=== PATIENT | female | born 1975 | race African-American/Black ===

== ENCOUNTER 2016-09-02 10:48 | Emergency (ER) | payer SELFPAY ==
[2016-09-02 10:52] VITALS: BP 134/83; PULSE 89; TEMP 98.6; BMI 29.2
[2016-09-02] MEDS ORDERED: IBUPROFEN 600 MG TABLET (FP) PO ONE ×2 (11:22→11:25)
[2016-09-02] MEDS ORDERED: DIPHTH,PERTUSS(ACELL),TET 0.5 ML DISP.SYRIN IM ONE (11:23)
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
--- NOTE | 2016-09-02 12:29 | EKG ---
Test Reason : Blood Pressure : / mmHG Vent. Rate : 077 BPM Atrial Rate : 077 BPM P-R Int : 164 ms QRS Dur : 090 ms QT Int : 386 ms P-R-T Axes : 061 057 050 degrees QTc Int : 436 ms NORMAL SINUS RHYTHM NONSPECIFIC T WAVE ABNORMALITY ABNORMAL ECG WHEN COMPARED WITH ECG OF 02-SEP-2016 10:58, NO SIGNIFICANT CHANGE WAS FOUND Confirmed by EDITH PADILLA MD ([id number]) on 09/02/2016 12:29:08 PM Referred By: Confirmed By:EDITH PADILLA MD
--- NOTE | 2016-09-04 14:57 | EKG ---
Test Reason : Blood Pressure : / mmHG Vent. Rate : 081 BPM Atrial Rate : 081 BPM P-R Int : 154 ms QRS Dur : 082 ms QT Int : 378 ms P-R-T Axes : 062 060 051 degrees QTc Int : 439 ms NORMAL SINUS RHYTHM POSSIBLE LEFT ATRIAL ENLARGEMENT BORDERLINE ECG NO PREVIOUS ECGS AVAILABLE Confirmed by ALIVIA ADKINS, OMA ([id number]) on 09/04/2016 2:56:26 PM Referred By: Confirmed By:OMA BUNCH MD
== END 2016-09-02 14:55 | disposition home or self-care (01) ==
LOC: JER 10:48
PROC: 3E0234Z Introduction of Serum, Toxoid and Vaccine into Muscle, Percutaneous Approach (ICD-10-PCS; principal; 2016-09-02)
DX: S02.82XA Fracture of other specified skull and facial bones, left side, initial encounter for closed fracture (principal); S20.219A Contusion of unspecified front wall of thorax, initial encounter; S00.12XA Contusion of left eyelid and periocular area, initial encounter; S05.12XA Contusion of eyeball and orbital tissues, left eye, initial encounter; W52.XXXA Crushed, pushed or stepped on by crowd or human stampede, initial encounter; Y93.89 Activity, other specified; Y92.89 Other specified places as the place of occurrence of the external cause
CPT/HCPCS: 70450-TC; 70486-TC; 71020-TC; 84703; 90715; 93005; 93010; 99282-25

== ENCOUNTER 2016-10-09 15:26 | Emergency (ER) | payer OTHER ==
[2016-10-09 15:29] VITALS: BP 134/75; PULSE 70; TEMP 98.8; BMI 28.3
[2016-10-09] MEDS ORDERED: IBUPROFEN 400 MG TABLET (FP) PO ONE ×2 (15:50→15:55)
--- NOTE | 2016-10-09 15:53 | PDOC ---
History of Present Illness - General Chief Complaint: Injury Stated Complaint: LT ANKLE PAIN Time Seen by Provider: 10/09/16 15:31 History Source: Patient - History of Present Illness Occurred: reports: yesterday Severity: Yes: mild Lower Extremity Pain Location: left: ankle Method of Injury: Yes: twisted Past History - Past Medical History Allergies/Adverse Reactions: Allergies Allergy/AdvReac Type Severity Reaction Status Date / Time No Known Allergies Allergy Verified 10/09/16 15:29 Home Medications: Ambulatory Orders NK [No Known Home Medication] 10/09/16 Asthma: No Cancer: No Cardiac Disorders: No Diabetes: No HTN: No Seizures: No Thyroid Disease: No - Psycho/Social/Smoking Cessation Hx Anxiety: No Suicidal Ideation: No Smoking History: Never smoked Have you smoked in the past 12 months: No Hx Alcohol Use: No Drug/Substance Use Hx: No Substance Use Type: None Hx Substance Use Treatment: No Review of Systems - Review of Systems Musculoskeletal: Yes: Joint Pain, Joint Swelling *Physical Exam - Vital Signs Last Vital Signs Temp Pulse Resp BP Pulse Ox 98.8 F 70 20 134/75 100 10/09/16 15:26 10/09/16 15:26 10/09/16 15:26 10/09/16 15:26 10/09/16 15:26 - Physical Exam General Appearance: Yes: Appropriately Dressed. No: Apparent Distress HEENT: positive: Normal Voice Neck: positive: Supple Respiratory/Chest: negative: Respiratory Distress Extremity: positive: Swelling (minimal swelling to lateral malleolus of L ankle) Integumentary: positive: Dry, Warm Neurologic: positive: Fully Oriented, Alert, Normal Mood/Affect ED Treatment Course - RADIOLOGY Radiology Studies Ordered: Category Date Time Status ANKLE & FOOT-LEFT* [RAD] Stat Radiology 10/09/16 15:50 Ordered Medical Decision Making - Medical Decision Making 10/09/16 15:50 41 yo F, no sig hx, here w/ L ankle pain and swelling s/p twisting injury yesterday. Able to bear weight and has not taken anything for pain See exam M/l ankle sprain -xr -pain control 10/09/16 16:06 XR neg for fx. Delano placed and pt discharged to take otc meds until sxs resolves *DC/Admit/Observation/Transfer Diagnosis at time of Disposition: Ankle sprain Qualifiers: Encounter type: initial encounter Involved ligament of ankle: unspecified ligament Laterality: left Qualified Code(s): S93.402A - Sprain of unspecified ligament of left ankle, initial encounter - Referrals Referrals: Brittney Chaidez MD [Primary Care Provider] - - Patient Instructions Printed Discharge Instructions: DI for Ankle Sprain Additional Instructions: You have an ankle sprain which can take a week or 2 to heal. Take motrin as needed for pain. Apply delano wrap, elevate and ice area as needed
== END 2016-10-09 16:19 | disposition home or self-care (01) ==
LOC: JERFT 15:26
DX: S93.402A Sprain of unspecified ligament of left ankle, initial encounter (principal); X50.1XXA Overexertion from prolonged static or awkward postures, initial encounter; Y93.89 Activity, other specified; Y92.89 Other specified places as the place of occurrence of the external cause
CPT/HCPCS: 73610-TC-LT; 73630-TC-LT; 99281-25

== ENCOUNTER 2017-01-09 09:02 | Emergency (ER) | payer OTHER ==
[2017-01-09 09:12] VITALS: BMI 28.3
[2017-01-09] MEDS ORDERED: ACETAMINOPHEN 500 MG TABLET (FP) PO ONE (09:38)
[2017-01-09] MEDS ORDERED: ACETAMINOPHEN 500 MG TABLET (FP) ONE (09:45)
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
[2017-01-09 11:32] VITALS: BP 120/68; PULSE 59; TEMP 98.1
== END 2017-01-09 11:43 | disposition home or self-care (01) ==
LOC: JER 09:02
DX: G44.319 Acute post-traumatic headache, not intractable (principal); W22.8XXD Striking against or struck by other objects, subsequent encounter; V88.8XXD Person injured in other specified noncollision transport accidents involving motor vehicle, nontraffic, subsequent encounter
CPT/HCPCS: 99282-25

== ENCOUNTER 2017-03-23 14:54 | Emergency (ER) | payer OTHER ==
[2017-03-23 15:00] VITALS: BP 114/73; PULSE 89; TEMP 99.6; BMI 28.3
--- NOTE | 2017-03-23 16:23 | PDOC ---
History of Present Illness - General Chief Complaint: Respiratory Stated Complaint: CHEST PAIN Time Seen by Provider: 03/23/17 16:14 History Source: Patient Exam Limitations: No Limitations - History of Present Illness Initial Comments: 03/23/17 16:18 Patient is a [41-year-old female with no other medical history children recently diagnosed with influenza presents with fever, cough, pain to chest with coughing, headache, body aches.] Past Medical History: [Denies]. Allergies: No known allergies Medications: [None] Family History: Non-contributory Social History: Denies smoking, alcohol use, or IVDU Vital signs on arrival are [notable for pulse of 96.] Review of Systems GENERAL/CONSTITUTIONAL: Fever, body aches, No weakness. No weight change.] HEAD, EYES, EARS, NOSE AND THROAT: [No change in vision. No ear pain or discharge. No sore throat. ] CARDIOVASCULAR: [No chest pain or shortness of breath.] RESPIRATORY: [Moist cough, no wheezing no hemoptysis] GASTROINTESTINAL: [No nausea, vomiting, diarrhea or constipation. No rectal bleeding.] GENITOURINARY: [No dysuria, frequency, or change in urination.] MUSCULOSKELETAL: [No joint or muscle swelling or pain. No neck or back pain.] SKIN : [No rash or easy bruising.] NEUROLOGIC: [ Frontal headache, vertigo, loss of consciousness, or loss of sensation.] PSYCHIATRIC: [No depression or anxiety.] ENDOCRINE: [No increased thirst. No abnormal weight change.] HEMATOLOGIC/LYMPHATIC: [No anemia, easy bleeding, or history of blood clots.] ALLERGIC/IMMUNOLOGIC: [No hives or skin allergy. No latex allergy.] Physical Exam: GENERAL: [The patient is awake, alert, and fully oriented, in no acute distress. ] HEAD: [Normal with no signs of trauma.] EYES: [Pupils equal, round and reactive to light, extraocular movements intact, sclera anicteric, conjunctiva clear.] ENT: [Ears normal, nares patent, oropharynx clear without exudates. Moist mucous membranes. No uvula deviation] NECK: [Normal range of motion, supple without lymphadenopathy, JVD, or masses.] LUNGS: [Rhonchi bilaterally, no wheezing, no crackles.] HEART: [Regular rate and rhythm, normal S1 and S2 without murmur, rub or gallop. ] ABDOMEN: [Soft, nontender, normoactive bowel sounds. No guarding, no rebound. No masses. No bruising or abrasions] MUSCULOSKELETAL: [Normal range of motion, no edema. No clubbing or cyanosis. No cords, erythema, or tenderness. No CVA Tenderness with fist.] NEUROLOGICAL: [Cranial nerves II through XII grossly intact. Normal speech, normal gait.] SKIN: [Warm, Dry, normal turgor, no rashes or lesions noted.] Past History - Past Medical History Allergies/Adverse Reactions: Allergies Allergy/AdvReac Type Severity Reaction Status Date / Time No Known Allergies Allergy Verified 01/09/17 09:03 Home Medications: Ambulatory Orders Azithromycin [Zithromax 250mg Tablets -] 250 mg PO UTDICT #6 tab 03/23/17 Oseltamivir Phosphate [Tamiflu -] 75 mg PO BID #10 capsule 03/23/17 Asthma: No Cancer: No Cardiac Disorders: No COPD: No Diabetes: No HTN: No Seizures: No Thyroid Disease: No - Immunization History Immunization Up to Date: Yes - Suicide/Smoking/Psychosocial Hx Smoking History: Never smoked Have you smoked in the past 12 months: No Hx Alcohol Use: Yes Drug/Substance Use Hx: No Substance Use Type: None Hx Substance Use Treatment: No *Physical Exam - Vital Signs Last Vital Signs Temp Pulse Resp BP Pulse Ox 99.6 F 89 18 114/73 100 03/23/17 14:57 03/23/17 14:57 03/23/17 14:57 03/23/17 14:57 03/23/17 14:57 Medical Decision Making - Medical Decision Making 03/23/17 16:20 A/P: Patient here with influenza-type illness was exposed to influenza will DC patient on azithromycin and Tamiflu. Instructions for self-care given to patient. *DC/Admit/Observation/Transfer Diagnosis at time of Disposition: Influenza URI (upper respiratory infection) Qualifiers: URI type: unspecified URI Qualified Code(s): J06.9 - Acute upper respiratory infection, unspecified - Discharge Dispostion Disposition: HOME Condition at time of disposition: Stable Admit: No - Prescriptions Prescriptions: Azithromycin [Zithromax 250mg Tablets -] 250 mg PO UTDICT #6 tab Oseltamivir Phosphate [Tamiflu -] 75 mg PO BID #10 capsule - Referrals Referrals: Brittney Chaidez MD [Primary Care Provider] - - Patient Instructions Additional Instructions: You have been diagnosed with influenza , exposure to influenza. Please take the medication as directed. You are contagious. Please attempt to avoid contact of multiple individuals as this will cause the infection to spread. Return to emergency room if shortness of breath, wheezing, fever greater than 101, chest pain, or fainting occurs. - Post Discharge Activity Forms/Work/School Notes: Back to Work
== END 2017-03-23 16:37 | disposition home or self-care (01) ==
LOC: JERFT 14:54
DX: J11.1 Influenza due to unidentified influenza virus with other respiratory manifestations (principal)
CPT/HCPCS: 99281-25

== ENCOUNTER 2017-08-11 19:12 | Emergency (ER) | payer OTHER ==
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
[2017-08-11 19:24] VITALS: BP 120/72; PULSE 83; TEMP 98.2; BMI 64.5
--- NOTE | 2017-08-11 20:24 | PDOC ---
History of Present Illness - General Chief Complaint: Pain Stated Complaint: PAIN Time Seen by Provider: 08/11/17 19:17 - History of Present Illness Initial Comments: 41-year-old female without comorbidities presents for evaluation of left ankle pain. She states she fractured her left ankle back in April was treated with a cast and started physical therapy about a week ago and since her initiation of the physical therapy program she's been having increased pain and swelling. She has no other associated symptoms. 08/11/17 20:21 Past History - Past Medical History Allergies/Adverse Reactions: Allergies Allergy/AdvReac Type Severity Reaction Status Date / Time No Known Allergies Allergy Verified 01/09/17 09:03 Home Medications: Ambulatory Orders NK [No Known Home Medication] 08/11/17 Asthma: No Cancer: No Cardiac Disorders: No COPD: No Diabetes: No HTN: No Seizures: No Thyroid Disease: No - Immunization History Immunization Up to Date: Yes - Suicide/Smoking/Psychosocial Hx Smoking History: Never smoked Have you smoked in the past 12 months: No Information on smoking cessation initiated: No Hx Alcohol Use: Yes Drug/Substance Use Hx: No Substance Use Type: None Hx Substance Use Treatment: No Review of Systems - Review of Systems Musculoskeletal: Yes: See HPI, Joint Pain All Other Systems: Reviewed and Negative *Physical Exam - Vital Signs Last Vital Signs Temp Pulse Resp BP Pulse Ox 98.2 F 83 20 120/72 100 08/11/17 19:19 08/11/17 19:19 08/11/17 19:19 08/11/17 19:19 08/11/17 19:19 - Physical Exam Comments: Left ankle skin color and temperature are normal there is full range of motion minimal tenderness over the lateral malleolus without any gross sensorimotor deficits. 08/11/17 20:22 ED Treatment Course - ADDITIONAL ORDERS Additional order review: Laboratory Results 08/11/17 19:30 Urine HCG, Qual Negative Medical Decision Making - Medical Decision Making Patient was treated nonoperatively with the Cam Walker boot and cast prior start physical therapy and her symptoms flared up. I advised her to continue taking Motrin and Tylenol. She'll follow-up with her orthopedist for further evaluation and treatment options. The fracture on x-ray. appears healed 08/11/17 20:22 08/11/17 20:23 *DC/Admit/Observation/Transfer Diagnosis at time of Disposition: Ankle pain, chronic - Discharge Dispostion Disposition: HOME Condition at time of disposition: Stable Decision to Admit order: No - Referrals Referrals: Jose Duncan MD [Staff Physician] - - Patient Instructions Additional Instructions: Continue to weight-bear as tolerated with the use of the Cam Walker boot and crutches. Return to the emergency room should her symptoms worsen or go unresolved. It's best that he follow-up with your orthopedist for further evaluation and treatment options and he progresses her physical therapy accordingly. - Post Discharge Activity
== END 2017-08-11 20:26 | disposition home or self-care (01) ==
LOC: JERFT 19:12
DX: M25.572 Pain in left ankle and joints of left foot (principal); G89.29 Other chronic pain
CPT/HCPCS: 73610-TC-LT-FY; 73630-TC-LT; 84703; 99281-25

== ENCOUNTER 2017-09-04 15:51 | Emergency (ER) | payer OTHER ==
--- NOTE | 2017-09-04 16:28 | PDOC ---
Rapid Medical Evaluation Time Seen by Provider: 09/04/17 16:26 Medical Evaluation: Allergies Allergy/AdvReac Type Severity Reaction Status Date / Time No Known Allergies Allergy Verified 01/09/17 09:03 I have performed a brief in-person evaluation of this patient. The patient presents with a chief complaint of: overall body itching since yesterday. facial swelling today. has been taking benadryl without relief Pertinent physical exam findings: left supraorbital swelling and left facial swelling. No visible rash I have ordered the following: hcg The patient will proceed to the ED for further evaluation. Discharge Disposition - Diagnosis Left facial swelling - Referrals - Patient Instructions - Post Discharge Activity
[2017-09-04 16:32] VITALS: BP 129/74; PULSE 70; TEMP 98.7; BMI 28.3
[2017-09-04] MEDS ORDERED: TRIAMCINOLONE ACET 40MG/1ML VIAL IM ONE (17:03)
[2017-09-04] MEDS ORDERED: IBUPROFEN 400 MG TABLET (FP) PO ONE ×2 (17:03→17:06)
[2017-09-04] MEDS ORDERED: TRIAMCINOLONE ACET 40MG/1ML VIAL ONE (17:06)
--- NOTE | 2017-09-04 17:09 | PDOC ---
History of Present Illness - General Chief Complaint: Eye Problem Stated Complaint: EYE PROBLEM Time Seen by Provider: 09/04/17 16:26 History Source: Patient Exam Limitations: No Limitations - History of Present Illness Initial Comments: 09/04/17 17:04 42 yr female no pmhx with left eye swollen lid itchy , rash to the left inner forearm. no fever no SOB no diff breathing. no travel. Past History - Past Medical History Allergies/Adverse Reactions: Allergies Allergy/AdvReac Type Severity Reaction Status Date / Time No Known Allergies Allergy Verified 09/04/17 16:29 Home Medications: Ambulatory Orders hydrOXYzine HCL [Atarax -] 10 mg PO QID #28 tablet 09/04/17 Asthma: No Cancer: No Cardiac Disorders: No COPD: No Diabetes: No HTN: No Seizures: No Thyroid Disease: No Other medical history: Pt denies - Immunization History Immunization Up to Date: Yes - Suicide/Smoking/Psychosocial Hx Smoking History: Never smoked Have you smoked in the past 12 months: No Information on smoking cessation initiated: No Hx Alcohol Use: No Drug/Substance Use Hx: No Substance Use Type: None Hx Substance Use Treatment: No *Physical Exam - Vital Signs Last Vital Signs Temp Pulse Resp BP Pulse Ox 98.7 F 70 18 129/74 100 09/04/17 16:29 09/04/17 16:29 09/04/17 16:29 09/04/17 16:29 09/04/17 16:29 *DC/Admit/Observation/Transfer Diagnosis at time of Disposition: Left facial swelling Allergic reaction Qualifiers: Encounter type: initial encounter Qualified Code(s): T78.40XA - Allergy, unspecified, initial encounter - Discharge Dispostion Disposition: HOME Condition at time of disposition: Good - Prescriptions Prescriptions: hydrOXYzine HCL [Atarax -] 10 mg PO QID #28 tablet - Referrals - Patient Instructions Additional Instructions: cool water to bathe cool compresses to the left eye every 2hrs for 20 minutes take ibuprofen 800mg every 8hrs for pain , swelling take the antihistamine as directed for itching follow with your doctor tomorrow or Friday return to ER for any worsening symptoms - Post Discharge Activity
== END 2017-09-04 17:31 | disposition home or self-care (01) ==
LOC: JERFT 15:51
DX: T78.40XA Allergy, unspecified, initial encounter (principal); H05.222 Edema of left orbit
CPT/HCPCS: 99281-25

== ENCOUNTER 2018-01-24 20:55 | Emergency (ER) | payer OTHER ==
[2018-01-24] MEDS ORDERED: NAPROXEN 500 MG TABLET (FP) PO ONE (22:09)
--- NOTE | 2018-01-24 22:16 | PDOC ---
History of Present Illness - General Chief Complaint: Injury Stated Complaint: ANKLE PAIN Time Seen by Provider: 01/24/18 21:39 - History of Present Illness Initial Comments: Alphonso Degroot is a 42yo otherwise healthy woman s/p left ankle fracture in April 2017 who presents with left lateral ankle pain for the past week. She reports that she followed up with her orthopedic surgeon about 3 weeks ago, and at that point she was told everything was healing well. However starting 5 days ago she started having pain in the left foot/ankle when inverting her foot or rotating it medially. There was no known injury prior to the pain starting. She has tried taking 200mg ibuprofen every 6-8 hours without significant improvement. Ms Degroot has been in physical therapy since her fracture healed, and the therapist suggested getting additional imaging to make sure there was nothing wrong with her ankle. Ms Degroot reports that she has been able to walk without difficulty. She has not noticed any swelling, redness, or wounds over her ankle. There is no pain with any motion other than medial rotation or inversion. She denies any other problems or symptoms including fevers, chest pain, or SOB. Per chart review, she has been seen several times in the ED with the same complaint. Past History - Past Medical History Allergies/Adverse Reactions: Allergies Allergy/AdvReac Type Severity Reaction Status Date / Time No Known Allergies Allergy Verified 01/24/18 21:11 Home Medications: Ambulatory Orders Erythromycin 0.5% Eye Ointment [Erythromycin 0.5% Eye Ointment -] 1 applic OS TID #1 tube 09/04/17 hydrOXYzine HCL [Atarax -] 10 mg PO QID #28 tablet 09/04/17 Naproxen 500 mg PO BID PRN #20 tablet 01/24/18 Asthma: No Cancer: No Cardiac Disorders: No COPD: No Diabetes: No HTN: No Seizures: No Thyroid Disease: No - Immunization History Immunization Up to Date: Yes - Suicide/Smoking/Psychosocial Hx Smoking History: Never smoked Have you smoked in the past 12 months: No Hx Alcohol Use: No Drug/Substance Use Hx: No Substance Use Type: None Hx Substance Use Treatment: No Review of Systems - Review of Systems Comments:: General: No fevers, no chills, no weight or appetite change, no malaise HEENT: No changes in vision, no changes in hearing, no congestion, no sore throat CV: No chest pain, no palpitations, no LE edema Pulm: No SOB, no cough, no wheezing GI: No nausea or vomiting, no change in bowel habits, no melena : No frequency, no urgency, no dysuria Musc: No back pain, no joint swelling. See HPI Skin: No rash, no lesions, no erythema Endo: No excessive thirst, no heat/cold intolerance Heme: No unusual bruising or bleeding, no swollen glands Neuro: No syncope, no numbness/tingling, no focal weakness Vasc: No claudication Psych: No recent change in mood, no SI or HI *Physical Exam - Vital Signs Last Vital Signs Temp Pulse Resp BP Pulse Ox 98.0 F 81 18 127/83 100 01/24/18 21:13 01/24/18 21:13 01/24/18 21:13 01/24/18 21:13 01/24/18 21:13 - Physical Exam Comments: General: Comfortable, no acute distress HEENT: PERRL, EOMI, MMM, voice normal, normal neck ROM, no LAD Cards: RRR, no murmur appreciated Pulm: Comfortable on room air Ext: No LE edema. ROM intact. Strength 5/5 and equal bilaterally. Able to ambulate and toe walk w/o difficulty. No erythema, edema, or obvious injury to the L ankle or foot. No tenderness to palpation anywhere on the left foot or ankle Vasc: Extremities WWP. Palpable radial and pedal pulses bilaterally Skin: Normal color, no rashes or lesions Neuro: A&Ox3, CN grossly intact, normal speech, motor/sensory grossly intact and symmetric Psych: Mood appropriate to situation Moderate Sedation - Procedure Monitoring Vital Signs: Procedure Monitoring Vital Signs Temperature 98.0 F 01/24/18 21:13 Pulse Rate 81 01/24/18 21:13 Respiratory Rate 18 01/24/18 21:13 Blood Pressure 127/83 01/24/18 21:13 O2 Sat by Pulse Oximetry (%) 100 01/24/18 21:13 ED Treatment Course - RADIOLOGY Radiology Studies Ordered: Category Date Time Status ANKLE & FOOT-LEFT* [RAD] Stat Radiology 01/24/18 22:09 Ordered Medical Decision Making - Medical Decision Making 01/24/18 22:16 Alphonso Degroot is a 42yo woman who presents with 5 days of left lateral ankle pain. She reports a previous, now well-healed fracture to the left ankle that occurred in April. - No obvious injury to the ankle. Ms Degroot does not remember any inciting event prior to the pain starting - Able to bear weight, full ROM, strength and neurovascular exam intact - Xray left ankle/foot to rule out new injury or improper healing. Previous, post-fracture xrays have all been negative - 500mg naproxen for pain - If xray is negative, plan to d/c home with ortho follow up and prescription for naproxen 500mg BID to use until seen by ortho 01/25/18 00:08 - Xray negative - Will d/c home to f/u with ortho in 1-2 weeks if pain persists. - Discussed with pt. She understands and agrees to this plan. Discussed with Dr Pal. Carolina Conde PGY1 *DC/Admit/Observation/Transfer Diagnosis at time of Disposition: Ankle pain, chronic Qualifiers: Laterality: left Qualified Code(s): M25.572 - Pain in left ankle and joints of left foot - Discharge Dispostion Disposition: HOME Condition at time of disposition: Stable Decision to Admit order: No - Prescriptions Prescriptions: Naproxen 500 mg PO BID PRN #20 tablet PRN Reason: Pain - Referrals Referrals: Brittney Chaidez MD [Primary Care Provider] - Grey Leos MD [Staff Physician] - - Patient Instructions Additional Instructions: Discharge Instructions: You were seen in the emergency department with left ankle pain. You had an xray that showed no new injury to the bone. Home Care: - You have been prescribed a pain medication called naproxen. This may be taken twice per day as needed. Make sure you take the medication with food to prevent upset stomach. This medication is similar to ibuprofen (Advil, Motrin) so do NOT take these medications at the same time. - Continue your physical therapy as scheduled - You may apply ice to the painful area of your ankle for 15-20 minutes per hour as needed Follow Up: - Make an appointment to follow up with your orthopedic surgeon within the next 1-2 weeks - Seek medical care if you have a new injury, sudden onset of pain, or are unable to walk on your left foot - Go to the nearest emergency department for any medical emergency including chest pain or shortness of breath. - Post Discharge Activity
--- NOTE | 2018-01-24 22:19 | PDOC ---
Attending Attestation - Resident Resident Name: [place] - ED Attending Attestation I have performed the following: I have examined & evaluated the patient, The case was reviewed & discussed with the resident, I agree w/resident's findings & plan, Exceptions are as noted - HPI HPI: 01/24/18 22:36 42-year-old female with past medical history of a prior left ankle fracture multiple months ago presents with left ankle pain. Patient reports that she is intermittent left ankle pain. She continues to physical therapy. 5 days ago, patient started noticing some mild left lateral ankle pain upon movement. Denies calf pain. Denies leg swelling. No numbness or weakness. - Physicial Exam PE: 01/24/18 22:43 GENERAL: Awake, alert, and fully oriented, in no acute distress HEAD: No signs of trauma EYES: EOMI, sclera anicteric, conjunctiva clear ENT: Auricles normal inspection, hearing grossly normal, nares patent NECK: Normal ROM, supple EXTREMITIES: Normal range of motion, no edema. No clubbing or cyanosis. No cords, erythema, or tenderness LLE: 2+ DP pulse. Sensation intact throughout. Alma sign negative. No edema. Mild left lateral malleolus tenderness but no deformities appreciated. Minimal pain reproduced with ankle inversion. No joint instability appreciated. NEUROLOGICAL: Cranial nerves II through XII grossly intact. Normal speech, normal gait SKIN: Warm, Dry, normal turgor, no rashes or lesions noted. - Medical Decision Making 01/24/18 22:45 Vital Signs Temp Pulse Resp BP Pulse Ox 98.0 F 81 18 127/83 100 01/24/18 21:13 01/24/18 21:13 01/24/18 21:13 01/24/18 21:13 01/24/18 21:13 Likely ankle strain. Pt is engaged in PT and walks on it. I have very low suspicion for DVT. Will defer on ultrasound imaging. Differential includes early onset arthritis of left ankle. Xray, NSAIDS. If xray demonstrates findings that are not concerning, will d/c patient to outpatient follow up with ortho. 01/25/18 00:08 Ankle xray reviewed by me, pending official radiology. No fractures.
[2018-01-24] MEDS ORDERED: NAPROXEN 500 MG TABLET (FP) ONE (22:33)
[2018-01-24 23:06] VITALS: BP 127/83; PULSE 81; TEMP 98; BMI 30.2
== END 2018-01-25 00:28 | disposition home or self-care (01) ==
LOC: JER 20:55
DX: M25.572 Pain in left ankle and joints of left foot (principal); G89.29 Other chronic pain; Z87.81 Personal history of (healed) traumatic fracture
CPT/HCPCS: 73610-TC-LT-FY; 73630-TC-LT; 84703; 99281-25

== ENCOUNTER 2019-04-06 16:35 | Inpatient (IN) | payer OTHER ==
[2019-04-06] MEDS ORDERED: ACETAMINOPHEN 1000 MG/100 ML VIAL (NON FORMULARY) IVPB ONE (16:39)
[2019-04-06] MEDS ORDERED: SODIUM CHLORIDE 1,000 ML IV STA (16:39)
[2019-04-06] MEDS ORDERED: ONDANSETRON 4 MG/2 ML VIAL IVPUSH ONE (16:39)
[2019-04-06 16:41] VITALS: BMI 30.2
--- NOTE | 2019-04-06 16:41 | PDOC ---
Rapid Medical Evaluation Time Seen by Provider: 04/06/19 16:37 Medical Evaluation: Allergies Allergy/AdvReac Type Severity Reaction Status Date / Time No Known Allergies Allergy Verified 04/06/19 16:37 04/06/19 16:38 Pt presents for abdominal pain, n/v/d since last night. Son was recently diagnosed with Flu Exam: TTP of the RLQ Orders: labs, urine, IV insert Pt to proceed to the ER for further evaluation Discharge Disposition - Diagnosis Vomiting Qualifiers: Vomiting type: unspecified Vomiting Intractability: unspecified Nausea presence : unspecified Qualified Code(s): R11.10 - Vomiting, unspecified - Referrals - Patient Instructions - Post Discharge Activity
--- NOTE | 2019-04-06 17:28 | PDOC ---
History of Present Illness - General Chief Complaint: Vomiting/Diarrhea Stated Complaint: VOMITING/DIARRHEA Time Seen by Provider: 04/06/19 16:37 Past History - Past Medical History Allergies/Adverse Reactions: Allergies Allergy/AdvReac Type Severity Reaction Status Date / Time No Known Allergies Allergy Verified 04/06/19 16:37 Home Medications: Ambulatory Orders Oxycodone HCl/Acetaminophen [Percocet 5-325 mg Tablet] 1 tab PO Q6H PRN #20 tablet MDD 4 04/09/19 Asthma: No Cancer: No Cardiac Disorders: No COPD: No Diabetes: No HTN: No Seizures: No Thyroid Disease: No - Immunization History Immunization Up to Date: Yes - Psycho Social/Smoking Cessation Hx Smoking History: Never smoked Have you smoked in the past 12 months: No Hx Alcohol Use: No Drug/Substance Use Hx: No Substance Use Type: None Hx Substance Use Treatment: No *Physical Exam - Vital Signs Last Vital Signs Temp Pulse Resp BP Pulse Ox 99.6 F 134 H 18 126/75 100 04/06/19 16:38 04/06/19 16:38 04/06/19 16:38 04/06/19 16:38 04/06/19 16:38 ED Treatment Course - LABORATORY CBC & Chemistry Diagram: 04/09/19 08:45 04/09/19 08:45 Medical Decision Making - Medical Decision Making 04/06/19 17:48 HPI: 43yo F no PMH presents from home c/o 1 day acute onset RLQ pain sharp nonradiating constant woke her from sleep at 2300 last PM, followed by nausea, NBNB emesis x20, multiple episodes NB diarrhea, lightheadedness, generalized weakness, myalgias, and bitemporal throbbing headache. After multiple episodes of vomiting bending over toilet, pt developed mid lower back pain. Endorses subjective fever last PM so took tylenol at 0000, no other meds tried. Pt felt completely fine in USOH when went to bed last PM. Son dx with flu B last week. Pt's LMP 03/26/19-03/30/19, regular. Denies vaginal bleeding, vaginal discharge, irritation, dysuria, hematuria, urinary urgency/frequency, flank pain, chance of , travel, recent antibiotic use, odd or off foods, rhinorrhea, sore throat, ear pain, congestion, sinus pressure. Pt has not tried eating food or drinking water today. PCP - Dm ROS: Constitutional: Positive for chills, fever, fatigue. Negative for diaphoresis. HENT: Negative for sore throat, rhinorrhea, congestion. Eyes: Negative for visual disturbance. Respiratory: Negative for shortness of breath, cough, and wheezing. Cardiovascular: Negative for chest pain, palpitations, and leg swelling. Gastrointestinal: Positive for RLQ pain, diarrhea, diarrhea, nausea, and vomiting. Negative for blood in stool, constipation. Genitourinary: Negative for dysuria, flank pain, and hematuria. Musculoskeletal: Positive for myalgias and midline lower back pain. Negative for and neck pain. Skin: Negative for rash. Neurological: Positive for light-headedness, dizziness, headache. Negative for vertigo, syncope, weakness, numbness. Psychiatric/Behavioral: Negative for behavioral problems and confusion. PE: Gen: Alert, NAD, uncomfortable-appearing, [id number] HEENT: PERRL, EOMI, MMM, NCAT. No conjunctival pallor. Sclera are non-icteric. Oropharynx is clear. CV: Regular rate and rhythm. No murmurs, rubs, or gallops. PULM: No resp distress. CTAB, no wheezes, rales, or rhonchi. ABD: soft, ND, +RLQ TTP with rebound tenderness and guarding, no CVA tenderness. Pelvic: External genitalia unremarkable. White thin discharge (most likely physiologic) and no blood seen with speculum exam. Cervix visualized and is unremarkable (closed in appearance without any protruding material). Bimanual exam without cervical motion tenderness, adnexal tenderness, or any masses appreciated. BACK: No TTP of c/t/l-spine. No step-offs or deformities. MSK: No bony deformities. 2+ pulses in all extremities. NEURO: AAOx3. PERRL. No gross CN deficits. Strength and sensation grossly intact throughout. EXTREMITIES: No cyanosis. No clubbing. No edema. No calf tenderness. PSYCH: Normal mood and thought pattern. SKIN: Warm and dry. Normal capillary refill. No rashes. No jaundice. MDM: 43yo F no PMH presents from home with 1 day acute onset RLQ pain sharp nonradiating constant woke her from sleep at 2300 last PM, followed by nausea, NBNB emesis x20, multiple episodes NB diarrhea, lightheadedness, generalized weakness, myalgias, bitemporal throbbing headache, subjective fever, and mid lower back pain; +flu B contact. Tachycardic 107 (arrival 134) but otherwise hemodynamically stable, afebrile ( 99.6F), +severe RLQ TTP with rebound tenderness. Ddx: flu, gastroenteritis, appendicitis, diverticulitis, colitis, metabolic derangement. Very low concern for pathology (TOA, ectopic , ovarian torsion, UTI/pyelo, PID) due to presence of diarrhea, lack of septic appearance , and lack of vaginal or urinary symptoms. -Flu,CBC,CMP,Lipase,UA/UC -EKG -Zofran, Tylenol, IVF -CTAP w/IV contrast -Dispo: pending w/u 04/06/19 18:28 WBC 20.6 -BCx x2 then Zosyn 04/06/19 19:[address] Contreras pending labs, EKG (for Zofran), and CTAP. Discharge - Discharge Information Problems reviewed: Yes Clinical Impression/Diagnosis: Appendicitis Vomiting Qualifiers: Vomiting type: unspecified Vomiting Intractability: unspecified Nausea presence : unspecified Qualified Code(s): R11.10 - Vomiting, unspecified Condition: Good Disposition: HOME - Follow up/Referral - Patient Discharge Instructions - Post Discharge Activity
[2019-04-06] MEDS ORDERED: ONDANSETRON 4 MG/2 ML VIAL ONE (17:42)
[2019-04-06] MEDS ORDERED: ACETAMINOPHEN INJECTION 100 ML IVPB ONE (17:42)
[2019-04-06 17:58] LABS: BASO % 0.1 % (0-2.0); HEMOGLOBIN 14.5 GM/dL (10.7-15.3); LYMPH % 6.8 % (8-40); MCH 31.6 pg (25.7-33.7); MCHC 34.4 g/dl (32.0-36.0); MEAN CELL VOLUME 91.8 fl (80-96); MEAN PLT VOLUME 8.7 fl (7.5-11.1); MONO % 5.2 % (3.8-10.2); NEUT % 87.9 % (42.8-82.8); PLATELET COUNT 403 K/MM3 (134-434); RBC 4.58 M/mm3 (3.60-5.2); RDW 13.1 % (11.6-15.6); WHITE BLOOD COUNT 20.6 K/mm3 (4.0-10.0)
[2019-04-06 18:30] LABS: ALBUMIN 3.9 g/dl (3.4-5.0); BILIRUBIN,TOTAL 0.6 mg/dL (0.2-1); BLOOD UREA NITROGEN 9.7 mg/dL (7-18); CALCIUM 9.9 mg/dL (8.5-10.1); CREATININE 0.9 mg/dL (0.55-1.3); TOT PROT 8.4 g/dl (6.4-8.2)
[2019-04-06] MEDS ORDERED: PIPERACILLIN/TAZOB 3.375 GM 3.375 GM in DEXTROSE 5%-WATER - 50 ML IVPB ONE (18:35)
[2019-04-06 18:45] LABS: EPI CELLS 12.7 /HPF (0-5/HPF); HYALINE CASTS 23 /lpf (0-8); PH,URINE 5.5 (5.0-8.0); URINE APPEARANCE CLOUDY; URINE BACTERIA 134.9 /hpf (NEGATIVE); URINE BILIRUBIN NEGATIVE (NEGATIVE); URINE COLOR YELLOW; URINE GLUCOSE (UA) NEGATIVE (NEGATIVE); URINE KETONE TRACE (NEGATIVE); URINE LEUK ESTERASE TRACE (NEGATIVE); URINE NITRITE NEGATIVE (NEGATIVE); URINE PROTEIN TRACE (NEGATIVE); URINE RBC 2 /hpf (0-4); URINE UROBILINOGEN 0.2 mg/dL (0.2-1.0); URINE WBC 7 /hpf (0-5)
[2019-04-06] MEDS ORDERED: PIPERACILLIN/TAZOB 3.375 GM 3.375 GM/50 ML BAG IVPB ONE (18:46)
[2019-04-06 20:14] LABS: PLATELET ESTIMATE ADEQUATE
--- NOTE | 2019-04-06 20:51 | PDOC ---
*Physical Exam - Vital Signs Last Vital Signs Temp Pulse Resp BP Pulse Ox 99.6 F 134 H 18 126/75 100 04/06/19 16:38 04/06/19 16:38 04/06/19 16:38 04/06/19 16:38 04/06/19 16:38 ED Treatment Course - LABORATORY CBC & Chemistry Diagram: 04/06/19 16:55 04/06/19 16:55 - ADDITIONAL ORDERS Additional order review: Laboratory Results 04/06/19 04/06/19 04/06/19 16:55 16:55 16:55 Sodium 137 Potassium 4.0 Chloride 103 Carbon Dioxide 25 Anion Gap 9 BUN 9.7 Creatinine 0.9 Est GFR (CKD-EPI)AfAm 92.05 Est GFR (CKD-EPI)NonAf 79.42 Random Glucose 98 Calcium 9.9 Total Bilirubin 0.6 AST 17 ALT 22 Alkaline Phosphatase 94 Total Protein 8.4 H Albumin 3.9 Lipase 104 Urine Color Yellow Urine Appearance Cloudy Urine pH 5.5 Ur Specific [place] 1.029 Urine Protein Trace Urine Glucose (UA) Negative Urine Ketones Trace H Urine Blood 1+ H Urine Nitrite Negative Urine Bilirubin Negative Urine Urobilinogen 0.2 Ur Leukocyte Esterase Trace Urine WBC (Auto) 7 Urine RBC (Auto) 2 Urine Casts (Auto) 23 U Pathogenic Cast Auto Negative U Epithel Cells (Auto) 12.7 Urine Bacteria (Auto) 134.9 Urine HCG, Qual Negative 04/06/19 16:55 RBC 4.58 MCV 91.8 MCHC 34.4 RDW 13.1 MPV 8.7 D Neutrophils % 87.9 H D Lymphocytes % 6.8 L D Monocytes % 5.2 Eosinophils % 0.0 D Basophils % 0.1 - Medications Given in the ED: ED Medications Discontinued Medications Generic Name Dose Route Start Last Admin Trade Name Freq PRN Reason Stop Dose Admin Acetaminophen 1,000 mg 04/06/19 16:39 04/06/19 17:45 Ofirmev Injection - IVPB 04/06/19 16:40 1,000 mg ONCE ONE Administration Sodium Chloride 1,000 mls @ 1,000 mls/hr 04/06/19 16:39 04/06/19 17:45 Normal Saline - IV 04/06/19 17:38 1,000 mls/hr ASDIR STA Administration Piperacillin Sod/Tazobactam 50 mls @ 100 mls/hr 04/06/19 18:35 04/06/19 18:54 Sod 3.375 gm/ Dextrose IVPB 04/06/19 19:04 100 mls/hr ONCE ONE Administration Protocol Ondansetron HCl 4 mg 04/06/19 16:39 04/06/19 17:45 Zofran Injection IVPUSH 04/06/19 16:40 4 mg ONCE ONE Administration Medical Decision Making - Medical Decision Making 04/06/19 20:49 Ct positive for appenditis. Consulted with Hakan Collazo who will see the patient in the morning. Patient admitted to hospitalist Discharge - Discharge Information Problems reviewed: Yes Clinical Impression/Diagnosis: Appendicitis Vomiting Qualifiers: Vomiting type: unspecified Vomiting Intractability: unspecified Nausea presence : unspecified Qualified Code(s): R11.10 - Vomiting, unspecified Condition: Good - Admission Yes - Follow up/Referral - Patient Discharge Instructions - Post Discharge Activity
[2019-04-06] MEDS ORDERED: LACTATED RINGERS SOLUTION 1,000 ML/1,000 ML INFUS.BAG IV STA (21:12)
--- NOTE | 2019-04-06 21:27 | HP ---
Admitting History and Physical - Primary Care Physician PCP: Birttney Chaidez - Admission Chief Complaint: RLQ pain, Nausea and Vomiting History of Present Illness: This is a 43 y/o woman with no PMHx. Who presents to the ED with sharp RLQ pain with NBNB vomiting, NB loose diarrhea x 1 day. Patient reports having subjective fevers, chills, weakness, myalgias, headache, and constant sharp RLQ pain. Patient denies SOB, CP, palpitations, constipation, dysuria. Patient denies vaginal discharge. LMP 03/26-03/29. Patient reports recent sick contact- her son + Influenza B History Source: Patient Limitations to Obtaining History: No Limitations - Past Medical History ...LMP: 03/26/19 ...: No ...: 4 ...Para: 4 - Past Surgical History Past Surgical History: Yes: (x2) Additional Past Surgical History: x2 - Smoking History Smoking history: Never smoked Have you smoked in the past 12 months: No - Alcohol/Substance Use Hx Alcohol Use: No History of Substance Use: reports: None - Social History Usual Living Arrangement: Yes: With Child ADL: Independent Occupation: Landscaping Crew Leader History of Recent Travel: No Home Medications - Allergies Allergies/Adverse Reactions: Allergies Allergy/AdvReac Type Severity Reaction Status Date / Time No Known Allergies Allergy Verified 04/06/19 16:37 - Home Medications Home Medications: Ambulatory Orders Erythromycin 0.5% Eye Ointment [Erythromycin 0.5% Eye Ointment -] 1 applic OS TID #1 tube 09/04/17 hydrOXYzine HCL [Atarax -] 10 mg PO QID #28 tablet 09/04/17 Naproxen 500 mg PO BID PRN #20 tablet 01/24/18 Family Medical History Family History: Unremarkable Review of Systems - Review of Systems Constitutional: reports: Chills, Fever, Loss of Appetite, Malaise, Weakness Eyes: reports: No Symptoms HENT: reports: No Symptoms Neck: reports: No Symptoms Cardiovascular: reports: No Symptoms Respiratory: reports: No Symptoms Gastrointestinal: reports: Abdominal Pain, Diarrhea, Nausea, Vomiting. denies: Constipation, Melena, Rectal Bleeding, Vomiting Blood Genitourinary: reports: No Symptoms Breasts: reports: No Symptoms Reported Musculoskeletal: reports: Back Pain Integumentary: reports: No Symptoms Neurological: reports: No Symptoms Endocrine: reports: No Symptoms Hematology/Lymphatic: reports: No Symptoms Psychiatric: reports: No Symptoms Pain Intensity: 9 Physical Examination Vital Signs: Vital Signs Temperature 98.6 F 04/06/19 21:00 Pulse Rate 82 04/06/19 21:00 Respiratory Rate 16 04/06/19 21:00 Blood Pressure 119/69 04/06/19 21:00 O2 Sat by Pulse Oximetry (%) 100 04/06/19 21:00 Constitutional: Yes: Mild Distress Eyes: Yes: WNL, Conjunctiva Clear, EOM Intact, PERRL HENT: Yes: Atraumatic, Normocephalic, Other (dry mucous membranes) Neck: Yes: WNL, Supple, Trachea Midline Cardiovascular: Yes: WNL, Regular Rate and Rhythm, S1, S2 Respiratory: Yes: WNL, Regular, CTA Bilaterally Gastrointestinal: Yes: Normal Bowel Sounds, Soft, Abdomen, Obese, Tenderness ( RLQ), Tenderness, Epigastrium, Tenderness, Rebound, Other (+guarding) ...Rectal Exam: Yes: Deferred Renal/: Yes: WNL Breast(s): Yes: WNL Musculoskeletal: Yes: WNL Extremities: Yes: WNL Edema: No Peripheral Pulses WNL: Yes Integumentary: Yes: Tattoos Neurological: Yes: WNL, Alert, Oriented ...Motor Strength: WNL Psychiatric: Yes: WNL, Alert, Oriented Labs: CBC, BMP 04/06/19 16:55 04/06/19 16:55 Laboratory Results - last 24 hr 04/06/19 04/06/19 04/06/19 16:55 16:55 16:55 WBC 20.6 H RBC 4.58 Hgb 14.5 Hct 42.0 D MCV 91.8 MCH 31.6 MCHC 34.4 RDW 13.1 Plt Count 403 D MPV 8.7 D Absolute Neuts (auto) 18.1 H Total Counted 100 Neutrophils % 87.9 H D Neutrophils % (Manual) 86.0 H Lymphocytes % 6.8 L D Lymphocytes % (Manual) 6.0 L Monocytes % 5.2 Monocytes % (Manual) 7 Eosinophils % 0.0 D Basophils % 0.1 Nucleated RBC % 0 Differential Comment Man diff performed Platelet Estimate Adequate Platelet Comment Slide scanned, Sodium 137 Potassium 4.0 Chloride 103 Carbon Dioxide 25 Anion Gap 9 BUN 9.7 Creatinine 0.9 Est GFR (CKD-EPI)AfAm 92.05 Est GFR (CKD-EPI)NonAf 79.42 Random Glucose 98 Calcium 9.9 Total Bilirubin 0.6 AST 17 ALT 22 Alkaline Phosphatase 94 Total Protein 8.4 H Albumin 3.9 Lipase 104 Urine Color Urine Appearance Urine pH Ur Specific [place] Urine Protein Urine Glucose (UA) Urine Ketones Urine Blood Urine Nitrite Urine Bilirubin Urine Urobilinogen Ur Leukocyte Esterase Urine WBC (Auto) Urine RBC (Auto) Urine Casts (Auto) U Pathogenic Cast Auto U Epithel Cells (Auto) Urine Bacteria (Auto) Urine HCG, Qual Negative Influenza A (Rapid) Influenza B (Rapid) 04/06/19 04/06/19 16:55 23:00 WBC RBC Hgb Hct MCV MCH MCHC RDW Plt Count MPV Absolute Neuts (auto) Total Counted Neutrophils % Neutrophils % (Manual) Lymphocytes % Lymphocytes % (Manual) Monocytes % Monocytes % (Manual) Eosinophils % Basophils % Nucleated RBC % Differential Comment Platelet Estimate Platelet Comment Sodium Potassium Chloride Carbon Dioxide Anion Gap BUN Creatinine Est GFR (CKD-EPI)AfAm Est GFR (CKD-EPI)NonAf Random Glucose Calcium Total Bilirubin AST ALT Alkaline Phosphatase Total Protein Albumin Lipase Urine Color Yellow Urine Appearance Cloudy Urine pH 5.5 Ur Specific [place] 1.029 Urine Protein Trace Urine Glucose (UA) Negative Urine Ketones Trace H Urine Blood 1+ H Urine Nitrite Negative Urine Bilirubin Negative Urine Urobilinogen 0.2 Ur Leukocyte Esterase Trace Urine WBC (Auto) 7 Urine RBC (Auto) 2 Urine Casts (Auto) 23 U Pathogenic Cast Auto Negative U Epithel Cells (Auto) 12.7 Urine Bacteria (Auto) 134.9 Urine HCG, Qual Influenza A (Rapid) Negative Influenza B (Rapid) Negative Intake & Output 04/04/19 04/05/19 04/06/19 04/07/19 23:59 23:59 23:59 23:59 Weight 72.575 kg Current Medications Generic Name Dose Route Start Last Admin Trade Name Freq PRN Reason Stop Dose Admin Acetaminophen 1,000 mg 04/07/19 00:00 Ofirmev Injection - IVPB Q6H PRN PAIN LEVEL 4 - 6 Piperacillin Sod/Tazobactam 50 mls @ 100 mls/hr 04/07/19 02:00 Sod 3.375 gm/ Dextrose IVPB Q8H-IV JOSSELYN Protocol Piperacillin Sod/Tazobactam 50 mls @ 100 mls/hr 04/07/19 02:00 04/07/19 02:16 Sod 3.375 gm/ Dextrose IVPB 04/07/19 18:29 100 mls/hr Q8H-IV JOSSELYN Administration Protocol Lactated Ringer's 1,000 ml in 1,000 mls @ 100 mls/hr 04/07/19 00:15 04/07/19 02:16 Lactated Ringers Solution IV 100 mls/hr ASDIR JOSSELYN Administration Morphine Sulfate 4 mg 04/06/19 21:37 04/06/19 23:00 Morphine Sulfate IVPUSH 4 mg Q6H PRN Administration PAIN LEVEL 7 - 10 Ondansetron HCl 4 mg 04/06/19 23:00 Zofran Injection IVPUSH Q6H PRN NAUSEA Imaging - Results Chest X-ray: Image Reviewed Cat Scan: Report Reviewed, Image Reviewed EKG: Image Reviewed Problem List - Problems (1) Appendicitis Assessment/Plan: Stefano Leslie CTAP report- acute appendicitis, small amount free fluid seen within the cul de sac, 0.1cm nonobstructing left renal calculus WBC 20.6, with L-shift Blood Cultures-pending Surgical consult placed and discussed with Dr Mcclendon, by the ED resident- will see tomorrow Zosyn initiated in ED, will continue Appreciate ID consult Monitor CBC Monitor vitals Zofran prn Ofirmev, Morphine Sulfate prn Code(s): K37 - UNSPECIFIED APPENDICITIS (2) Exposure to influenza Assessment/Plan: Patient's son had Influenza B Rapid Flu- neg A+B Code(s): Z20.828 - CONTACT W AND EXPOSURE TO OTH VIRAL COMMUNICABLE DISEASES Assessment/Plan This is a 43 y/o woman admitted for Acute Appendicitis for further evaluation of their emergent medical condition. Plan: See Problem List FEN LR@125ml/hr Replete lytes prn NPO DVT ppx OOB SCDs Hold AC for now due to possible surgery Code Status: Full Code Dispo: Requires Inpatient Care Visit type - Emergency Visit Emergency Visit: Yes ED Registration Date: 04/06/19 Care time: The patient presented to the Emergency Department on the above date and was hospitalized for further evaluation of their emergent condition. - New Patient This patient is new to me today: Yes Date on this admission: 04/06/19 - Critical Care Critical Care patient: No
[2019-04-06] MEDS ORDERED: morphine SULFATE 4 MG/ML VIAL IVPUSH PRN (21:37)
[2019-04-06] MEDS ORDERED: FAMOTIDINE 20 MG/50 ML IVPB 20 MG/50 ML MG IVPB ONE ×2 (22:27→22:51)
[2019-04-06] MEDS ORDERED: morphine SULFATE 4 MG/ML VIAL ONE (22:51)
[2019-04-06] MEDS ORDERED: ONDANSETRON 4 MG/2 ML VIAL IVPUSH PRN (23:00)
[2019-04-07] MEDS ORDERED: ACETAMINOPHEN 1000 MG/100 ML VIAL (NON FORMULARY) IVPB PRN
[2019-04-07] MEDS ORDERED: LACTATED RINGERS SOLUTION 1,000 ML/1,000 ML INFUS.BAG IV SCH (00:15)
[2019-04-07] MEDS: PIPERACILLIN/TAZOB 3.375 GM 3.375 GM in DEXTROSE 5%-WATER - 50 ML IVPB SCH ×4 (02:16→18:13)
[2019-04-07 07:00] LABS: BASO % 0.4 % (0-2.0); EOS % 0.4 % (0-4.5); HEMATOCRIT 31.7 % (32.4-45.2); HEMOGLOBIN 10.9 GM/dL (10.7-15.3); LYMPH % 18.3 % (8-40); MCH 31.9 pg (25.7-33.7); MCHC 34.4 g/dl (32.0-36.0); MEAN CELL VOLUME 92.8 fl (80-96); NEUT % 73.9 % (42.8-82.8); PLATELET COUNT 255 K/MM3 (134-434); RBC 3.42 M/mm3 (3.60-5.2); RDW 12.7 % (11.6-15.6); WHITE BLOOD COUNT 9.4 K/mm3 (4.0-10.0)
[2019-04-07 07:18] LABS: INR 1.25 (0.83-1.09); PROTHROMBIN TIME (PATIENT) 14.8 SEC (9.7-13.0)
[2019-04-07 07:27] LABS: BLOOD UREA NITROGEN 6.6 mg/dL (7-18); CALCIUM 7.7 mg/dL (8.5-10.1); CREATININE 0.5 mg/dL (0.55-1.3); POTASSIUM 4.1 mmol/L (3.5-5.1)
--- NOTE | 2019-04-07 08:15 | CONSULT ---
- Consultation REQUESTING PROVIDER: CONSULT REQUEST: We have been asked to surgically evaluate this patient for acute appendicitis. PCP:Brittney Chaidez HISTORY OF PRESENT ILLNESS: The patient is a 43 year old female presenting with nausea, vomiting, and abdominal pain. The patient states that she went to bed last night without complaints and was suddenly awoken during the night with sharp right sided abdominal pain. This was accompanied with nausea, vomiting, and a subjective fever. She states that the pain was mostly on the right side but was throughout her abdomen when she moved. Denies other complaints PMHx: Denies any PMHx PSHx: C-Sections x 2, abdominoplasty Home Medications Medication Instructions Recorded Erythromycin 0.5% Eye Ointment 1 applic OS TID #1 tube 09/04/17 [Erythromycin 0.5% Eye Ointment -] hydrOXYzine HCL [Atarax -] 10 mg PO QID #28 tablet 09/04/17 Naproxen 500 mg PO BID PRN #20 tablet 01/24/18 Allergies Allergy/AdvReac Type Severity Reaction Status Date / Time No Known Allergies Allergy Verified 04/06/19 16:37 REVIEW OF SYSTEMS: CONSTITUTIONAL: fever, dizziness, loss of appetite, Absent: chills, diaphoresis, malaise, weight change,generalized weakness, CARDIOVASCULAR: Absent: chest pain, syncope, palpitations, irregular heart rate, lightheadedness , peripheral edema RESPIRATORY: Absent: cough, shortness of breath, dyspnea with exertion, wheezing, stridor, hemoptysis GASTROINTESTINAL: abdominal pain, nausea, vomiting Absent: abdominal distension, diarrhea, constipation, melena, hematochezia GENITOURINARY: Absent: dysuria, frequency, urgency, hesitancy, hematuria, flank pain, genital pain MUSCULOSKELETAL: Absent: myalgia, arthralgia, joint swelling, back pain, neck pain SKIN: Absent: rash, itching, pallor HEMATOLOGIC/IMMUNOLOGIC: Absent: easy bleeding, easy bruising, lymphadenopathy NEUROLOGIC: dizziness Absent: headache, focal weakness, paresthesias, unsteady gait, seizure, mental status changes, bladder or bowel incontinence PSYCHIATRIC: Absent: anxiety, depression, suicidal or homicidal ideation, hallucinations. PHYSICAL EXAM: GENERAL: Awake, alert, and fully oriented, in no acute distress. HEAD: Normal with no signs of trauma. EYES: PERRL, sclera anicteric, conjunctiva clear. NECK: Normal ROM, supple without lymphadenopathy, JVD, or masses. LUNGS: Clear to auscultation bilat anteriorly. No wheezes, and no crackles. No accessory muscle use. HEART: Regular rate and rhythm. No murmurs ABDOMEN: Soft, difuse tenderness to palpation, guarding, rebound, mildly distended, no masses. No organomegaly. MUSCULOSKELETAL: Normal ROM at all joints. No bony deformities or tenderness. No CVA tenderness. UPPER EXTREMITIES: 2+ pulses, warm, well-perfused. No cyanosis. Cap refill <2 seconds. No peripheral edema. LOWER EXTREMITIES: 2+ pulses, warm, well-perfused. No calf tenderness. No peripheral edema. NEUROLOGICAL: Normal speech, gait not observed. PSYCH: Cooperative. Good eye contact. Appropriate mood and affect. SKIN: Warm, dry, normal turgor, no rashes or lesions noted. Vital Signs Temperature 98.6 F 04/06/19 21:00 Pulse Rate 79 04/07/19 02:09 Respiratory Rate 18 04/07/19 02:09 Blood Pressure 107/57 L 04/07/19 02:09 O2 Sat by Pulse Oximetry (%) 100 04/07/19 02:09 Lab Results WBC 9.4 K/mm3 (4.0-10.0) 04/07/19 06:36 RBC 3.42 M/mm3 (3.60-5.2) L 04/07/19 06:36 Hgb 10.9 GM/dL (10.7-15.3) 04/07/19 06:36 Hct 31.7 % (32.4-45.2) L D 04/07/19 06:36 MCV 92.8 fl (80-96) 04/07/19 06:36 MCHC 34.4 g/dl (32.0-36.0) 04/07/19 06:36 RDW 12.7 % (11.6-15.6) 04/07/19 06:36 Plt Count 255 K/MM3 (134-434) D 04/07/19 06:36 Sodium 140 mmol/L (136-145) 04/07/19 06:36 Potassium 4.1 mmol/L (3.5-5.1) 04/07/19 06:36 Chloride 109 mmol/L (98-107) H 04/07/19 06:36 Carbon Dioxide 22 mmol/L (21-32) 04/07/19 06:36 Anion Gap 8 MMOL/L (8-16) 04/07/19 06:36 BUN 6.6 mg/dL (7-18) L 04/07/19 06:36 Creatinine 0.5 mg/dL (0.55-1.3) L 04/07/19 06:36 Random Glucose 76 mg/dL (74-106) 04/07/19 06:36 Calcium 7.7 mg/dL (8.5-10.1) L 04/07/19 06:36 INR 1.25 (0.83-1.09) H 04/07/19 06:36 Imaging: CT Scan Abdomen and Pelvis -Actute appendicitis, no abscess visualized, a small amount of free fluid is seen within the cul-de-sac Impression and Plan: 43 Year Old Female with Acute Appendicitis - The case was discussed with Dr. Mcclendon and the patient and she will undergo a Laparscopic Appendectomy, possible open - Continue NPO - Continue IV Hydration - Continue IV Antibiotic Therapy
[2019-04-07] MEDS ORDERED: MIDAZOLAM HCL 2 MG/2 ML SINGLE DOSE VIAL ONE (10:02)
[2019-04-07] MEDS ORDERED: ROCURONIUM BROMIDE 50 MG/5 ML SYRINGE ONE (10:25)
--- NOTE | 2019-04-07 11:19 | EKG ---
Test Reason : Blood Pressure : / mmHG Vent. Rate : 086 BPM Atrial Rate : 086 BPM P-R Int : 154 ms QRS Dur : 090 ms QT Int : 314 ms P-R-T Axes : 054 044 035 degrees QTc Int : 375 ms NORMAL SINUS RHYTHM LEFT ATRIAL ENLARGEMENT CANNOT RULE OUT ANTERIOR INFARCT , AGE UNDETERMINED ABNORMAL ECG WHEN COMPARED WITH ECG OF 02-SEP-2016 12:10, QT HAS SHORTENED Confirmed by MD YAMILA, CHELSEA ([id number]) on 04/07/2019 11:19:47 AM Referred By: Confirmed By:CHELSEA DRISCOLL MD
[2019-04-07] MEDS ORDERED: NEOSTIGMINE METHYLSULFATE 0.5 MG/ML - 10 ML MDV ONE (11:26)
[2019-04-07] MEDS ORDERED: BUPIVACAINE HCL/PF 0.5% (5 MG/ML) 30 ML VIAL IJ ONE ×2 (11:33)
[2019-04-07] MEDS ORDERED: PROPOFOL 20 ML ONE (11:35)
[2019-04-07] MEDS ORDERED: ONDANSETRON 4 MG/2 ML VIAL IVPUSH PRN (11:45)
--- NOTE | 2019-04-07 11:57 | PN ---
Progress Note (short form) - Note Progress Note: seen in recovery room after lap.appendectomy and lysis of adhesions tolerated procedure well 120/75 64 o2sat 100% s1s2 rrr lungs cta no edema arousable but still sedated iv abx x24 hrs dc planning as per surgery outpt f/up for fibriod uterus and 0.1 cm renal stone-will d/w pt
--- NOTE | 2019-04-07 12:15 | OP ---
Operative Note - Note: Operative Date: 04/07/19 Pre-Operative Diagnosis: acute appendicitis Operation: Laproscopic appendectomy Post-Operative Diagnosis: Same as Pre-op Surgeon: Jose Mcclendon Interactive Designer: Moy Rivera Anesthesiologist/NURSE'S COMPANION: Jovani Petersen Anesthesia: General Estimated Blood Loss (mls): 10 Operative Report Dictated: Yes
--- NOTE | 2019-04-07 12:17 | SURG ---
[facility] Note [facility]: Moy Rivera PA-C Date of Service: 04/07/19 Diagnosis: acute appendicitis Procedure: laproscopic appendectomy and lysis of adhesions I was present for the entirety of the operative procedure. For further detail, please refer to operative report. Visit type - Case Type Case Type: Scheduled - Emergency Emergency Visit: No - New patient This patient is new to me today: Yes Date on this admission: 04/07/19 - Critical Care Critical Care patient: No
--- NOTE | 2019-04-07 13:47 | CON.ID ---
Consult Consult Specialty:: infectious diseases - Past Medical History ...LMP: 03/26/19 ...: No - Past Surgical History Past Surgical History: Yes: (x2) - Alcohol/Substance Use Hx Alcohol Use: No History of Substance Use: reports: None - Smoking History Smoking history: Never smoked Have you smoked in the past 12 months: No - Social History ADL: Independent Occupation: [employer] History of Recent Travel: No Home Medications - Allergies Allergies/Adverse Reactions: Allergies Allergy/AdvReac Type Severity Reaction Status Date / Time No Known Allergies Allergy Verified 04/06/19 16:37 - Home Medications Home Medications: Ambulatory Orders Erythromycin 0.5% Eye Ointment [Erythromycin 0.5% Eye Ointment -] 1 applic OS TID #1 tube 09/04/17 hydrOXYzine HCL [Atarax -] 10 mg PO QID #28 tablet 09/04/17 Naproxen 500 mg PO BID PRN #20 tablet 01/24/18 Physical Exam Vital Signs: Vital Signs Temperature 98.9 F 04/07/19 11:57 Pulse Rate 63 04/07/19 13:10 Respiratory Rate 18 04/07/19 13:10 Blood Pressure 105/66 04/07/19 13:10 O2 Sat by Pulse Oximetry (%) 98 04/07/19 13:10 Labs: CBC, BMP 04/07/19 06:36 04/07/19 06:36
[2019-04-07] MEDS: ONDANSETRON 4 MG/2 ML VIAL IVPUSH PRN ×2 (14:02→20:33)
[2019-04-07] MEDS ORDERED: ONDANSETRON 4 MG/2 ML VIAL ONE (14:02)
[2019-04-07] MEDS ORDERED: PIPERACILLIN/TAZOBACTAM 3.375 GM VIAL IVPB ONE ×2 (14:15→18:06)
[2019-04-07] MEDS: LACTATED RINGERS SOLUTION 1,000 ML/1,000 ML INFUS.BAG IV SCH (14:25)
[2019-04-07] MEDS: ACETAMINOPHEN 1000 MG/100 ML VIAL (NON FORMULARY) IVPB PRN (16:55)
[2019-04-07] MEDS ORDERED: DEXTROSE 5%-WATER - 50 ML IVPB ONE (18:06)
[2019-04-07] MEDS: morphine SULFATE 4 MG/ML VIAL IVPUSH PRN (20:33)
[2019-04-08] MEDS ORDERED: PIPERACILLIN/TAZOBACTAM 3.375 GM VIAL IVPB ONE ×3 (01:23→16:44)
[2019-04-08] MEDS ORDERED: DEXTROSE 5%-WATER - 50 ML IVPB ONE ×3 (01:23→16:44)
[2019-04-08] MEDS: PIPERACILLIN/TAZOB 3.375 GM 3.375 GM in DEXTROSE 5%-WATER - 50 ML IVPB SCH ×3 (01:48→17:29)
[2019-04-08] MEDS: morphine SULFATE 4 MG/ML VIAL IVPUSH PRN ×2 (01:58→10:29)
--- NOTE | 2019-04-08 09:01 | PN ---
Progress Note, Physician History of Present Illness: patient c/o of nausea abd pain post op - Current Medication List Current Medications: Active Medications Acetaminophen (Ofirmev Injection -) 1,000 mg IVPB Q6H PRN PRN Reason: PAIN LEVEL 4 - 6 Last Admin: 04/07/19 16:55 Dose: 1,000 mg Lactated Ringer's (Lactated Ringers Solution) 1,000 ml in 1,000 mls @ 100 mls/ hr IV ASDIR JOSSELYN Last Admin: 04/07/19 14:25 Dose: 0 mls Piperacillin Sod/Tazobactam (Sod 3.375 gm/ Dextrose) 50 mls @ 100 mls/hr IVPB Q8H-IV JOSSELYN; Protocol Last Admin: 04/08/19 01:48 Dose: 100 mls/hr Morphine Sulfate (Morphine Sulfate) 4 mg IVPUSH Q6H PRN PRN Reason: PAIN LEVEL 7 - 10 Last Admin: 04/08/19 01:58 Dose: 4 mg Ondansetron HCl (Zofran Injection) 4 mg IVPUSH Q6H PRN PRN Reason: NAUSEA Last Admin: 04/07/19 20:33 Dose: 4 mg - Objective Vital Signs: Vital Signs Temperature 97.9 F 04/08/19 05:51 Pulse Rate 70 04/08/19 05:51 Respiratory Rate 20 04/08/19 05:51 Blood Pressure 127/65 04/08/19 05:51 O2 Sat by Pulse Oximetry (%) 100 04/07/19 21:00 Constitutional: Yes: Calm, Mild Distress Eyes: Yes: Conjunctiva Clear Cardiovascular: Yes: Regular Rate and Rhythm Respiratory: Yes: Regular, CTA Bilaterally Gastrointestinal: Yes: Soft, Hypoactive Bowel Sounds, Tenderness, Other (nausea) Musculoskeletal: Yes: WNL Extremities: Yes: WNL Wound/Incision: Yes: Clean/Dry Neurological: Yes: Alert, Oriented Psychiatric: Yes: Alert, Oriented Labs: CBC, BMP 04/07/19 06:36 04/07/19 06:36 INR, PTT INR 1.25 (0.83-1.09) H 04/07/19 06:36 Assessment/Plan Problem List - Problems (1) Appendicitis Code(s): K37 - UNSPECIFIED APPENDICITIS (2) Exposure to influenza Code(s): Z20.828 - CONTACT W AND EXPOSURE TO OTH VIRAL COMMUNICABLE DISEASES plan can stop abx monitor for nausea rest as per the team
--- NOTE | 2019-04-08 09:06 | PN ---
Progress Note (short form) - Note Progress Note: CBC, BMP 04/07/19 06:36 04/07/19 06:36 Vital Signs Period Temp Pulse Resp BP Sys/Vivar Pulse Ox Last 24 Hr 97.9 F-100.6 F 63-94 14-20 95-134/53-81 98-100 s1s2 rrr lungs cta no edema surgical sites are clean, mild abdominal tenderness overall ok iv abx x24 hrs dc planning as per surgery outpt f/up for fibriod uterus and 0.1 cm renal stone-will d/w pt
--- NOTE | 2019-04-08 10:23 | PN ---
Progress Note (short form) - Note Progress Note: Attending Surgeon POD #1 minimal c/o abdiminal pain; voiding; some nausea; tolerated clear liquids VSS Af T max. 100.2 abdo-port sites c/di/i; incisional tenderness o/w negative labs pending IMP: doing well PLAN: OOB; check labs advance diet as tolerated. Jose Mcclendon MD FACS
[2019-04-08] MEDS ORDERED: POLYETHYLENE GLYCOL 3350 119 GM BTL PO ONE (10:41)
--- NOTE | 2019-04-08 11:03 | OP ---
DATE OF OPERATION: 04/07/2019 PREOPERATIVE DIAGNOSIS: Acute appendicitis. POSTOPERATIVE DIAGNOSIS: Acute appendicitis. PROCEDURE: Laparoscopic appendectomy. SURGEON: Jose Mcclendon MD CERTIFIED HYPERBARIC TECHNOLOGIST: Moy Rivera PA-C ANESTHESIA: General. OPERATIVE FINDINGS: There was acute appendicitis and marked adhesions of the uterus to the abdominal wall from previous sections. The rest of the findings were unremarkable. DESCRIPTION OF PROCEDURE: The patient was placed on the operating table in supine position, and after the induction of general anesthesia and placement of a Roy catheter, the patient's abdomen was prepped with ChloraPrep and draped in sterile fashion. A timeout was taken and pneumoperitoneum established above the umbilicus using a Veress needle to an intraabdominal pressure of 15 mmHg. The previously noted findings were observed on laparoscopy. A left lower quadrant 5-mm port was placed under direct laparoscopic vision without evidence of this impinging on any of the adhesions present. In addition, the umbilical port site was examined and was found to be not in any of the areas of adhesions as well. Next, because of the marked adhesions of the uterus to the lower abdominal wall, a 12-mm port was placed in the right lower quadrant under direct vision. The appendix was grasped and the mesoappendix serially divided using LigaSure device close to the base of the appendix. The base was identified by the convergence of the 3 tinea on the cecum, and then a 45-mm purple load Endo JOANN was fired across the base of the appendix. The appendix was then placed in an Endocatch and brought out through the right lower quadrant 12-mm port and sent for pathological examination. Hemostasis was checked for and noted to be good and then laparoscopy carried out again through the remaining 2 ports to verify no evidence of bleeding or injury to any of the adhesions that were present or other intraabdominal structures. Once this was verified, all ports were removed under laparoscopic vision without evidence of bleeding from the port sites. The pneumoperitoneum was evacuated, and all port sites were infiltrated with 0.5 % Marcaine. The defect at the 12-mm port site in the right lower quadrant was closed with a single [id number] 0 Vicryl suture. All port site incisions were closed with 4-0 Monocryl in a subcuticular fashion and Steri-Strips and Band-Aid dressings placed. The Roy catheter was removed and the patient aroused from general anesthesia and transferred to the postanesthesia care unit in stable condition, awake and alert. ESTIMATED BLOOD LOSS: 10 mL. REPLACEMENTS: Crystalloid. DRAINS: None. SPECIMEN: Appendix to pathology. I, Jose Mcclendon, was physically present in the operating room from the time the patient was placed on the operating table until she was transferred to the postanesthesia care unit in [employer]. MD MARTIN Duncan/[id number] MTDD
[2019-04-08 11:30] LABS: BASO % 0.2 % (0-2.0); EOS % 0.1 % (0-4.5); HEMOGLOBIN 10.5 GM/dL (10.7-15.3); LYMPH % 11.8 % (8-40); MCHC 33.9 g/dl (32.0-36.0); MEAN CELL VOLUME 91.6 fl (80-96); MEAN PLT VOLUME 7.9 fl (7.5-11.1); MONO % 7.7 % (3.8-10.2); NEUT % 80.2 % (42.8-82.8); PLATELET COUNT 281 K/MM3 (134-434); RBC 3.38 M/mm3 (3.60-5.2); RDW 12.9 % (11.6-15.6); WHITE BLOOD COUNT 13.3 K/mm3 (4.0-10.0)
[2019-04-08 11:59] LABS: BLOOD UREA NITROGEN 6.8 mg/dL (7-18); CALCIUM 8.3 mg/dL (8.5-10.1); CREATININE 0.8 mg/dL (0.55-1.3); POTASSIUM 3.8 mmol/L (3.5-5.1)
[2019-04-08] MEDS: ONDANSETRON 4 MG/2 ML VIAL IVPUSH PRN (12:36)
[2019-04-08] MEDS: ACETAMINOPHEN 1000 MG/100 ML VIAL (NON FORMULARY) IVPB PRN ×2 (15:03→21:40)
[2019-04-08] MEDS: LACTATED RINGERS SOLUTION 1,000 ML/1,000 ML INFUS.BAG IV SCH (17:29)
--- NOTE | 2019-04-08 17:53 | PATH ---
Surgical Pathology Report Patient Name: LAUREN GONZALEZ Med. Rec. #: [id number] /Age/Gender: 1975 (Age: 43) / F Account: [id number] Location: [facility] MED/SURG Taken: 04/07/2019 Received: 04/07/2019 Reported: 04/08/2019 Physicians: Jose Mcclendon MD Specimen(s) Received APPENDIX Clinical History Appendicitis Final Diagnosis APPENDIX, LAPAROSCOPIC APPENDECTOMY: ACUTE APPENDICITIS AND PERIAPPENDICITIS. Electronically Signed Barbie Asher M.D. Gross Description Received in formalin, labeled "appendix," is a 5.5 cm. in length vermiform appendix with a stapled margin of resection and moderate attached fat. The serosa is bennett-pink and smooth. Sectioning reveals a hemorrhagic lumen. The wall of the appendix averages 0.1 cm. in thickness. Consulting Services Manager sections are submitted in one cassette. /04/07/2019 saudi04/07/2019
[2019-04-09] MEDS ORDERED: PIPERACILLIN/TAZOBACTAM 3.375 GM VIAL IVPB ONE ×2 (00:32→10:33)
[2019-04-09] MEDS ORDERED: DEXTROSE 5%-WATER - 50 ML IVPB ONE ×2 (00:33→10:34)
[2019-04-09] MEDS: PIPERACILLIN/TAZOB 3.375 GM 3.375 GM in DEXTROSE 5%-WATER - 50 ML IVPB SCH ×2 (01:31→10:36)
[2019-04-09] MEDS: LACTATED RINGERS SOLUTION 1,000 ML/1,000 ML INFUS.BAG IV SCH (04:49)
[2019-04-09] MEDS: ACETAMINOPHEN 1000 MG/100 ML VIAL (NON FORMULARY) IVPB PRN (06:31)
[2019-04-09] MEDS ORDERED: ACETAMINOPHEN 500 MG TABLET (FP) PO PRN (07:51)
[2019-04-09] MEDS ORDERED: ACETAMINOPHEN 325 MG TABLET (FP) PO PRN (07:54)
[2019-04-09] MEDS ORDERED: oxyCODONE HCL 5 MG TABLET PO PRN (07:54)
--- NOTE | 2019-04-09 08:03 | PN ---
Progress Note (short form) - Note Progress Note: Vital Signs Period Temp Pulse Resp BP Sys/Vivar Pulse Ox Last 24 Hr 97.8 F-98.3 F 69-73 18-20 120-146/53-72 99-99 s1s2 rrr lungs cta no edema surgical sites are clean, mild abdominal tenderness overall ok feels better nausea and dizziness resolved dc iv fluids, dc iv morphine po tylenol or percocet dc planning as per surgery outpt f/up for fibriod uterus and 0.1 cm renal stone-did d/w pt
[2019-04-09 09:15] LABS: BASO % 0.8 % (0-2.0); HEMATOCRIT 32.9 % (32.4-45.2); HEMOGLOBIN 11.4 GM/dL (10.7-15.3); LYMPH % 39.9 % (8-40); MCH 31.8 pg (25.7-33.7); MCHC 34.6 g/dl (32.0-36.0); MEAN CELL VOLUME 91.8 fl (80-96); MONO % 5.8 % (3.8-10.2); NEUT % 52.5 % (42.8-82.8); PLATELET COUNT 289 K/MM3 (134-434); RBC 3.58 M/mm3 (3.60-5.2); WHITE BLOOD COUNT 7.7 K/mm3 (4.0-10.0)
--- NOTE | 2019-04-09 09:16 | PDOC ---
Documentation entered by Patrick Sterling SCRIBE, acting as scribe for Kenia Cagle MD. Kenia Cagle MD: This documentation has been prepared by the Hallie beltrán Nirvannie, SCRIBE, under my direction and personally reviewed by me in its entirety. I confirm that the documentation accurately reflects all work, treatment, procedures, and medical decision making performed by me. Attending Attestation - Resident Resident Name: Kenia Reilly - ED Attending Attestation I have performed the following: I have examined & evaluated the patient, The case was reviewed & discussed with the resident, I agree w/resident's findings & plan, Exceptions are as noted - HPI HPI: 04/06/19 18:40 The patient is a 43 year old female, with no significant past medical history, who presents to the emergency department with 1.5 day of acute onset sharp, constant right lower quadrant pain. As per patient her symptoms initially onset 11pm last night with associated nausea, NBNB emesis (x20), multiple episodes of nonbloody diarrhea, subjective fever, generalized weakness, and headache, Allergies: NKDA Primary Care Physician: Dr. Chaidez - Physicial Exam PE: GENERAL: Awake, alert, and fully oriented, in no acute distress. Appears ill but nontoxic. Appears uncomfortable. HEAD: No signs of trauma EYES: PERRLA, EOMI, sclera anicteric, conjunctiva clear ENT: Auricles normal inspection, hearing grossly normal, nares patent, oropharynx clear without exudates. Moist mucosa NECK: Normal ROM, supple, no lymphadenopathy, JVD, or masses LUNGS: Breath sounds equal, clear to auscultation bilaterally. No wheezes, and no crackles HEART: Regular rate and rhythm, normal S1 and S2, no murmurs, rubs or gallops ABDOMEN: Soft, diffusely tender but worst at RLQ. Normoactive bowel sounds. + Guarding, no rebound. No masses EXTREMITIES: Normal range of motion, no edema. No clubbing or cyanosis. No cords, erythema, or tenderness NEUROLOGICAL: Cranial nerves II through XII grossly intact. Normal speech, normal gait. Motor and sensation intact SKIN: Warm, dry, normal turgor, no rashes or lesions noted. - Medical Decision Making Pt arrived appearing uncomfortable, with significant RLQ tenderness. Found to have leukocytosis. Will give abx presumptively while awaiting CT results. Suspect acute appendicitis. Signed out to night team, pending CT.
[2019-04-09 09:40] LABS: BILIRUBIN,TOTAL 0.3 mg/dL (0.2-1); CALCIUM 8.9 mg/dL (8.5-10.1); CREATININE 0.7 mg/dL (0.55-1.3); POTASSIUM 4.1 mmol/L (3.5-5.1); TOT PROT 6.6 g/dl (6.4-8.2)
--- NOTE | 2019-04-09 11:27 | PN ---
Progress Note, Physician History of Present Illness: stable no new issues feels better - Current Medication List Current Medications: Active Medications Acetaminophen (Tylenol -) 1,000 mg PO Q6H PRN PRN Reason: PAIN Acetaminophen (Tylenol -) 650 mg PO Q6H PRN PRN Reason: PAIN 7-10 Piperacillin Sod/Tazobactam (Sod 3.375 gm/ Dextrose) 50 mls @ 100 mls/hr IVPB Q8H-IV JOSSELYN; Protocol Last Admin: 04/09/19 10:36 Dose: 100 mls/hr Ondansetron HCl (Zofran Injection) 4 mg IVPUSH Q6H PRN PRN Reason: NAUSEA Last Admin: 04/08/19 12:36 Dose: 4 mg Oxycodone HCl (Roxicodone -) 10 mg PO Q6H PRN PRN Reason: PAIN 7-10 - Objective Vital Signs: Vital Signs Temperature 98 F 04/09/19 06:37 Pulse Rate 73 04/09/19 06:37 Respiratory Rate 20 04/09/19 06:37 Blood Pressure 120/72 04/09/19 06:37 O2 Sat by Pulse Oximetry (%) 99 04/08/19 21:00 Constitutional: Yes: No Distress, Calm Cardiovascular: Yes: S1, S2 Respiratory: Yes: Regular, CTA Bilaterally Gastrointestinal: Yes: Normal Bowel Sounds, Soft, Tenderness Musculoskeletal: Yes: WNL Extremities: Yes: WNL Wound/Incision: Yes: Clean/Dry Neurological: Yes: Alert, Oriented Psychiatric: Yes: Alert, Oriented Labs: CBC, BMP 04/09/19 08:45 04/09/19 08:45 INR, PTT INR 1.25 (0.83-1.09) H 04/07/19 06:36 Assessment/Plan Problem List - Problems (1) Appendicitis Code(s): K37 - UNSPECIFIED APPENDICITIS (2) Exposure to influenza Code(s): Z20.828 - CONTACT W AND EXPOSURE TO OTH VIRAL COMMUNICABLE DISEASES plan wbc angelika; continue current mgmt will stop abx and monitor rest as per the team
--- NOTE | 2019-04-09 11:44 | PN ---
Progress Note (short form) - Note Progress Note: Attending Surgeon POD#2 s/p lap appendectomy No c/o;tolerating diet VSS AF abdo-soft; flat and minimal ttp at LLQ port site; port sites c/d/i; o/w negative. WBC-nl path verified IMP: stable for d/c PLAN: d/c home to office f/u next week. Jose Mcclendon MD FACS
[2019-04-09 12:14] VITALS: BP 128/78; PULSE 60; TEMP 98.1
--- NOTE | 2019-04-09 12:33 | DS ---
Physical Examination Vital Signs: Vital Signs Temperature 98.1 F 04/09/19 12:00 Pulse Rate 60 04/09/19 12:00 Respiratory Rate 20 04/09/19 12:00 Blood Pressure 128/78 04/09/19 12:00 O2 Sat by Pulse Oximetry (%) 99 04/09/19 09:00 Constitutional: Yes: Well Nourished, Calm Eyes: Yes: EOM Intact Neck: Yes: Trachea Midline Cardiovascular: Yes: Regular Rate and Rhythm Respiratory: Yes: CTA Bilaterally Gastrointestinal: Yes: Normal Bowel Sounds, Soft, Tenderness (mild at surgical site) Renal/: Yes: WNL Labs: CBC, BMP 04/09/19 08:45 04/09/19 08:45 Discharge Summary Problems reviewed: Yes Reason For Visit: APPENDICITIS Current Active Problems Appendicitis (Acute) Exposure to influenza (Acute) Vomiting (Acute) Procedures: Principal: s/p lap.appendectomy and lysis of adhesions 04.07.2019 Hospital Course: admitted for acute appendicitis s/p lap.appendectomy and lysis of adhesions tolerated procedure well on ct noted fibriod uterus and 0.1 cm renal stone-discussed with pt, will follow up with echocardiologist and pcp Condition: Good - Instructions Diet, Activity, Other Instructions: Dr. Mcclendon Discharge Instructions Dear LAUREN GONZALEZ, Post Operative Instructions Physical activity Resume your normal everyday activity as tolerated no heavy lifting or exercise until seen by your surgeon. You may walk unlimited amounts of and climb stairs. You may resume driving the car when you feel safe and comfortable behind the wheel. Wound care If you have a bandage, leave it on, and keep dry for 48 - 72 hours. After that time discard the outer bandage. If there are tapes on the skin under the outer bandage, leave them in place. They will peel off in the next 7 to 10 days. Do Not peel them off. You may shower 2 days after surgery. If there are tapes present on the skin, they can get wet. Diet There are no dietary restrictions. Eat healthy, high-fiber foods. Drink 6 to 8 glasses of liquid each day. This will assist in keeping your bowels are regular. Pain management You may take Tylenol or acetaminophen or Ibuprofen (for example, Motrin, Advil etc.) Any pain prescription medication ordered should be taken as prescribed for moderate to severe pain. Call Dr. Mcclendon for any of the following: Severe pain not relieved by medication Fever of 101 or higher Excessive bleeding or drainage on dressing Inability to urinate Call the office at [phone] for a post operative appointment in 7 - 10 days. Referrals: Jose Mcclendon MD [Staff Physician] - Brittney Chaidez MD [Primary Care Provider] - Disposition: HOME - Home Medications Comprehensive Discharge Medication List: Ambulatory Orders Erythromycin 0.5% Eye Ointment [Erythromycin 0.5% Eye Ointment -] 1 applic OS TID #1 tube 09/04/17 hydrOXYzine HCL [Atarax -] 10 mg PO QID #28 tablet 09/04/17 Naproxen 500 mg PO BID PRN #20 tablet 01/24/18 Prescription Drug Monitoring Program (I-STOP) results: I-STOP reviewed and no issues identified
== END 2019-04-09 14:41 | disposition home or self-care (01) | DRG 225 ==
LOC: JER 16:35 → JERBED 20:51 → J8W 04-07 14:42
PROVIDERS: ADMIT Internal Medicine; ATTEND Internal Medicine
PROC: 0DNW4ZZ Release Peritoneum, Percutaneous Endoscopic Approach (ICD-10-PCS; 2019-04-07)
PROC: 0DTJ4ZZ Resection of Appendix, Percutaneous Endoscopic Approach (ICD-10-PCS; principal; 2019-04-07 10:00)
DX: K35.80 Unspecified acute appendicitis (principal); Z20.828 Contact with and (suspected) exposure to other viral communicable diseases; D25.9 Leiomyoma of uterus, unspecified; N20.0 Calculus of kidney; R11.2 Nausea with vomiting, unspecified; R10.31 Right lower quadrant pain; N73.6 Female pelvic peritoneal adhesions (postinfective)
CPT/HCPCS: 36415; 71045-TC-FY; 74176-TC; 80048; 80053; 81003; 83690; 84703; 85025; 85610; 86850; 86900; 86901; 87040; 87086; 87804; 93005; 93010; 94010; 94760; 99285-25; J0131; J7030

== ENCOUNTER 2021-07-28 15:57 | Emergency (ER) | payer OTHER ==
[2021-07-28 16:06] VITALS: BP 138/94; PULSE 76; TEMP 98.2; BMI 31.9
[2021-07-28] MEDS ORDERED: LIDOCAINE 5% TOPICAL PATCH TP ONE (19:05)
[2021-07-28] MEDS ORDERED: KETOROLAC TROMETHAMINE 30 MG/1 ML VIAL IM ONE (19:05)
[2021-07-28] MEDS ORDERED: LIDOCAINE 5% TOPICAL PATCH ONE (19:16)
[2021-07-28] MEDS ORDERED: KETOROLAC TROMETHAMINE 30 MG/1 ML VIAL ONE (19:16)
[2021-07-28] MEDS ORDERED: LIDOCAINE PATCH REMOVAL MC SCH (22:00)
== END 2021-07-28 20:37 | disposition home or self-care (01) ==
LOC: JERFT 15:57
PROC: 3E0233Z Introduction of Anti-inflammatory into Muscle, Percutaneous Approach (ICD-10-PCS; principal; 2021-07-28)
DX: M79.605 Pain in left leg (principal)
CPT/HCPCS: 72220-TC-FY; 73502-TC-LT-FY; 99284-25

== ENCOUNTER 2021-11-22 09:09 | Emergency (ER) | payer OTHER ==
[2021-11-22 09:25] VITALS: BP 125/84; PULSE 75; RESP 18; TEMP 98.4; BMI 31.1
[2021-11-22] MEDS ORDERED: KETOROLAC TROMETHAMINE 30 MG/1 ML VIAL IM ONE (10:15)
[2021-11-22] MEDS ORDERED: LIDOCAINE 5% TOPICAL PATCH TP ONE (10:18)
[2021-11-22] MEDS ORDERED: LIDOCAINE 5% TOPICAL PATCH ONE (10:57)
[2021-11-22] MEDS ORDERED: KETOROLAC TROMETHAMINE 30 MG/1 ML VIAL ONE (10:57)
[2021-11-22] MEDS ORDERED: LIDOCAINE PATCH REMOVAL MC SCH (22:00)
== END 2021-11-22 12:08 | disposition home or self-care (01) ==
LOC: JER 09:09 → JERFT 09:09
PROC: 3E0233Z Introduction of Anti-inflammatory into Muscle, Percutaneous Approach (ICD-10-PCS; principal; 2021-11-22)
DX: M54.42 Lumbago with sciatica, left side (principal)
CPT/HCPCS: 71046-TC-FY; 93005; 93010; 99284-25